=== PATIENT | male | born 1960 | race Caucasian/White ===

== ENCOUNTER 2021-07-12 18:27 | Inpatient (IN) ==
[2021-07-12] MEDS ORDERED: ONDANSETRON INJ 2 MG/ML 2 ML VIAL ONE (19:29)
[2021-07-12] MEDS ORDERED: SODIUM CHLORIDE 0.9% 1000ML 1,000 ML IV ONE (21:56)
[2021-07-12] MEDS ORDERED: ACETAMINOPHEN 325 MG TAB PO STA (21:56)
--- NOTE | 2021-07-12 22:01 | Emergency Department Note ---
History of Present Illness General Chief complaint: Weakness Stated complaint: NAUSEA,COUGH,WEAKNESS,TIRED Time Seen by Provider: 07/12/21 21:48 Source: patient History of Present Illness Provider complaint: Generalized weakness Onset (ago): week(s) Location: head Pain Consistency: + constant Maximum Pain Intensity: 7 Quality: + other (Feels weak and tired) Relieved By: + none Associated symptoms: + cough, + malaise, + nausea/vomiting (Nausea no vomiting), + weakness and + other (Diarrhea with loss of taste and smell); no chest pain, no fever/chills or no shortness of breath This is a 60-year-old male with a history of diabetes presenting with generalized weakness. He contracted COVID-19 approximately 10 days ago. He has been ill with a cough, loss of taste and smell, diarrhea and generalized malaise. He denies any chest pain or shortness of breath except when he had a coughing fit earlier tonight. He has not been throwing up but he is very nauseous and has not been eating very much. He is mostly concerned because his mouth and throat are very dry and he is not eating very much. He has not really had any fevers at home. He denies any abdominal pain or urinary symptoms. He has had no leg swelling or pain. He is not vaccinated for COVID-19. Home Medications Medication Instructions Recorded Confirmed Type Unknown Eye Drop 1 drp OPHTHALMIC (EYE) BID 07/12/21 07/12/21 History aspirin 81 mg tablet,delayed 81 mg PO DAILY 07/12/21 07/12/21 History release brimonidine 0.1 % eye drops 1 drp OPHTHALMIC (EYE) BID 07/12/21 07/12/21 History (Alphagan P) glyburide 2.5 mg tablet 2.5 mg PO BID 07/12/21 07/12/21 History guaifenesin 100 mg/5 mL oral liquid 200 mg PO DIRECTED PRN 07/12/21 07/12/21 History loteprednol etabonate 0.5 % eye 1 drp OPHTHALMIC (EYE) QAM 07/12/21 07/12/21 History drops,suspension (Lotemax) sitagliptin 100 mg tablet (Januvia) 100 mg PO HS 07/12/21 07/12/21 History timolol maleate 0.5 % eye drops 1 drp OPHTHALMIC (EYE) DAILY 07/12/21 07/12/21 H istory Allergies Allergy/AdvReac Type Severity Reaction Status Date / Time No Known Allergies Allergy Verified 07/12/21 22:45 Past Med/Surg History Medical History Diabetes High cholesterol Social History Smoking Status: Never smoker Preferred Language: Belarusian Feels Safe at Home: Yes Review of Systems See HPI for pertinent positives & negatives. and A total of 10 systems reviewed and were otherwise negative Physical Exam Vital Signs Vital Signs - 24 hr 07/12/21 18:32 07/12/21 22:25 Temperature 37.9 C H Temperature Source Temporal Artery Scan Pulse Rate 105 H Pulse Rate [Apical] 88 Pulse Rhythm Regular Pulse Rhythm [Apical] Regular Pulse Strength Normal Respiratory Rate 20 16 Respiratory Effort / Characteristics Non-Labored Spontaneous Non-Labored Respiratory Depth Normal Normal Respiratory Pattern Regular Blood Pressure 136/83 Blood Pressure [Right Arm] 152/91 H Blood Pressure Mean 100 Blood Pressure Mean [Right Arm] 111 Blood Pressure Position Sitting Pulse Oximetry 91 96 Oxygen Delivery Method Room Air Nasal Cannula Oxygen Flow Rate 2 Sepsis Recent Fever Within 48 Hours No Sepsis New/Unexplained Change in Mental Status No Sepsis Action Taken by Nursing No Action Required Oxygen Flow Rate - Titration 2 Pulse Oximetry Post Tiitration 93 Constitutional: Vital signs reviewed. Eyes: Pupils are equal round reactive to light. Conjunctiva are noninjected. ENT: Pharynx is clear without erythema or exudate. Mucous membranes are dry. Neck supple without meningeal signs. Respiratory: Clear to auscultation bilaterally. Breath sounds are equal bilaterally. Cardiovascular: Regular rate and rhythm. No rubs or gallops. GI: Soft, nondistended and nontender. Bowel sounds are present. Musculoskeletal: No peripheral edema. No lower extremity tenderness. Integumentary: No cyanosis. or jaundice. Neurological: The patient is awake and alert. No focal deficits. Psychiatric: Normal affect. Not anxious appearing. Course Administered Medications Remdesivir 200 mg/ Sodium (Chloride) 250 mls @ 125 mls/hr IV ONE STA; Protocol Stop: 07/13/21 02:17 Last Admin: 07/13/21 00:54 Dose: 125 mls/hr Documented by: [id number] Sodium Chloride (Nss 1000ml) 1,000 mls @ 75 mls/hr IV .[id number] ONE Stop: 07/13/21 13:37 Last Admin: 07/13/21 00:54 Dose: 75 mls/hr Documented by: [id number] Discontinued Medications Acetaminophen (Acetaminophen 325 Mg Tab) 650 mg PO NOW STA Stop: 07/12/21 21:57 Last Admin: 07/12/21 22:28 Dose: 650 mg Documented by: [id number] Dexamethasone Sodium Phosphate (DexamethasonePf 10 Mg/Ml Vial) 6 mg IV NOW ONE Stop: 07/12/21 22:51 Last Admin: 07/12/21 23:14 Dose: 6 mg Documented by: [id number] Sodium Chloride (Nss 1000ml) 1,000 mls @ 999 mls/hr IV .[id number] ONE Stop: 07/12/21 22:56 Last Infusion: 07/12/21 23:42 Dose: 0 mls/hr Documented by: [id number] Admin: 07/12/21 22:28 Dose: 999 mls/hr Documented by: [id number] Insulin Glargine (Insulin Glargine Solostar 100 Units/Ml 3 Ml Pen) 20 units SC NOW STA Stop: 07/12/21 23:31 Last Admin: 07/13/21 00:52 Dose: 20 units Documented by: [id number] Cosigned by: [id number] Insulin Human Regular (Novolin-R Insulin Per Unit Charge) 4 units IV NOW STA Stop: 07/12/21 22:51 Last Admin: 07/12/21 23:21 Dose: 4 units Documented by: [id number] Cosigned by: [id number] Levalbuterol HCl (Levalbuterol Tartrate 15 Gm Hfa.Aer.Ad) 2 puffs INH NOW STA Stop: 07/13/21 00:12 Last Admin: 07/13/21 00:55 Dose: 2 puffs Documented by: [id number] Ondansetron HCl (Ondansetron Inj 2 Mg/Ml 2 Ml Vial) Confirm Administered Dose 4 mg .ROUTE .STK-MED ONE Stop: 07/12/21 19:30 Last Admin: 07/12/21 22:50 Dose: Not Given Documented by: [id number] Ondansetron HCl (Ondansetron Inj 2 Mg/Ml 2 Ml Vial) 4 mg IV NOW STA Stop: 07/12/21 22:09 Last Admin: 07/12/21 22:28 Dose: 4 mg Documented by: [id number] Medical Decision Making Differential Diagnosis COVID-19, pneumonia, dehydration, metabolic derangement, electrolyte abnormality Medical Records Attestation: I reviewed the patient's medical records. I did perform a limited focused review of portions of the patient's old chart on the electronic medical record. The patient has had no recent pertinent visits to this hospital. Home Medications Current Medication List: was personally reviewed by [place] Laboratory Data Attestation: I reviewed the patient's lab results. Result diagrams: 07/12/21 22:30 07/12/21 22:30 Lab Results 07/12/21 07/12/21 07/12/21 Range/Units 18:34 22:30 22:30 WBC 7.58 (4.8-10.8) K/uL RBC 4.95 (4.7-6.1) M/uL Hgb 14.9 (14.0-18.0) g/dL Hct 43.6 (42-52) % MCV 88.1 (80-100) fL MCH 30.1 (25-34) pg MCHC 34.2 (32-36) g/dL RDW Std Deviation 42.7 (36.4-46.3) fL RDW Coeff of Caroline 13.2 (11.5-14.5) % Plt Count 180 (130-400) K/uL MPV 11.1 H (7.4-10.4) fL Immature Gran % (Auto) 0.7 % Neut % (Auto) 78.7 % Lymph % (Auto) 14.1 % Charlton % (Auto) 6.2 % Eos % (Auto) 0.0 % Baso % (Auto) 0.3 % Neut # (Auto) 5.97 (1.4-6.5) K/uL Lymph # (Auto) 1.07 L (1.2-3.4) K/uL [place] # (Auto) 0.47 (0.11-0.59) K/uL Eos # (Auto) 0.00 (0-0.5) K/uL Baso # (Auto) 0.02 (0-0.2) K/uL Immature Gran # (Auto) 0.05 H (0.00-0.02) K/uL Sodium 137 (136-145) mmol/L Potassium 4.1 (3.5-5.1) mmol/L Chloride 103 (98-107) mmol/L Carbon Dioxide 21 (21-32) mmol/L Anion Gap 13.0 H (3-11) BUN 30 H (7-18) mg/dl Creatinine 1.13 (0.6-1.4) mg/dl Est Cr Clr Drug Dosing 75.5 ml/min Est GFR ( Amer) 81.4 ml/min Est GFR (Non-Af Amer) 70.3 ml/min BUN/Creatinine Ratio 26.5 H (10-20) Glucose 310 H* (70-99) mg/dl POC Glucose 309 H* (70-99) mg/dl Calcium 9.0 (8.5-10.1) mg/dl Magnesium 2.3 (1.8-2.4) mg/dl Total Bilirubin 0.6 (0.2-1) mg/dl AST 19 (15-37) U/L ALT 22 (12-78) U/L Alkaline Phosphatase 72 (45-117) U/L Troponin I < 0.015 (0-0.045) ng/ml Total Protein 7.6 (6.4-8.2) gm/dl Albumin 3.0 L (3.4-5.0) gm/dl Globulin 4.6 H (2.5-4.0) gm/dl Albumin/Globulin Ratio 0.6 L (0.9-2) Beta-Hydroxybutyric Acd 36.14 H (0.2-2.81) mg/dl TSH 0.492 (0.300-4.500) uIu/ml 07/12/21 Range/Units 23:12 WBC (4.8-10.8) K/uL RBC (4.7-6.1) M/uL Hgb (14.0-18.0) g/dL Hct (42-52) % MCV (80-100) fL MCH (25-34) pg MCHC (32-36) g/dL RDW Std Deviation (36.4-46.3) fL RDW Coeff of Caroline (11.5-14.5) % Plt Count (130-400) K/uL MPV (7.4-10.4) fL Immature Gran % (Auto) % Neut % (Auto) % Lymph % (Auto) % [place] % (Auto) % Eos % (Auto) % Baso % (Auto) % Neut # (Auto) (1.4-6.5) K/uL Lymph # (Auto) (1.2-3.4) K/uL [place] # (Auto) (0.11-0.59) K/uL Eos # (Auto) (0-0.5) K/uL Baso # (Auto) (0-0.2) K/uL Immature Gran # (Auto) (0.00-0.02) K/uL Sodium (136-145) mmol/L Potassium (3.5-5.1) mmol/L Chloride (98-107) mmol/L Carbon Dioxide (21-32) mmol/L Anion Gap (3-11) BUN (7-18) mg/dl Creatinine (0.6-1.4) mg/dl Est Cr Clr Drug Dosing ml/min Est GFR ( Amer) ml/min Est GFR (Non-Af Amer) ml/min BUN/Creatinine Ratio (10-20) Glucose (70-99) mg/dl POC Glucose 290 H (70-99) mg/dl Calcium (8.5-10.1) mg/dl Magnesium (1.8-2.4) mg/dl Total Bilirubin (0.2-1) mg/dl AST (15-37) U/L ALT (12-78) U/L Alkaline Phosphatase (45-117) U/L Troponin I (0-0.045) ng/ml Total Protein (6.4-8.2) gm/dl Albumin (3.4-5.0) gm/dl Globulin (2.5-4.0) gm/dl Albumin/Globulin Ratio (0.9-2) Beta-Hydroxybutyric Acd (0.2-2.81) mg/dl TSH (0.300-4.500) uIu/ml Imaging Data Radiologist's Impression: Chest X-Ray 07/12/21 21:56 XR chest 1V portable HISTORY: 60 years-old Male covid acute shortness of breath. COMPARISON: Chest radiograph 12/28/2012 TECHNIQUE: Portable AP view of the chest FINDINGS: The cardiac silhouette is enlarged. No pneumothorax or large pleural effusion. Interstitial coarsening with right greater than left ill-defined patchy bilateral airspace opacities. Degenerative changes of the shoulders and spine. No acute fracture. IMPRESSION: Right greater than left bilateral pulmonary opacities are suggestive of viral pneumonia. ACT 112: Negative or not required by law. The above report was generated using voice recognition software. It may contain grammatical, syntax or spelling errors. Electronically signed by: Carroll Owens M.D. 07/12/2021 10:18 PM ECG Data Attestation: I personally reviewed and interpreted this ECG as follows: Indication: + SOB/dyspnea Rate (beats per minute): 94 Rhythm: + normal sinus ECG [place]: + Normal ECG ST segments: no ST elevation ECG Findings: no PVCs MDM Narrative I did evaluate the patient as noted above. The patient is having Covid symptoms from 7 to 10 days. He is having trouble remembering. He is presenting today because he feels weak and nauseous and has not been able to eat very much. He denies feeling very short of breath. IV access was established. I did place an order for continuous cardiac monitoring. The monitor showed normal sinus rhythm at a rate of 88 bpm. I did order and personally review the patient's 12-lead EKG as described above. He has no acute ischemic changes. I did order and pers onally reviewed the images of the patient's chest x-ray as described above. He has changes consistent with a viral pneumonia. I did order and review the patient's blood work as noted in the electronic medical record. CBC does not demonstrate leukocytosis or anemia. His electrolytes are unremarkable. His glucose is elevated at 310. He is diabetic but not on insulin. His troponin and LFTs are within normal limits. I did treat the patient with normal saline IV. He was also given 4 units of insulin IV. His O2 saturation dropped to the high 80s and so he was placed on 2 L of oxygen via nasal cannula. On reassessment he states he feels better on the oxygen. He will be hospitalized for further care and evaluation. He was given Decadron 6 mg IV and warned that his blood sugar may increase because of this. I did discuss the case with the hospitalist and pillowcase turner. Repeat blood sugar was 290. Impression & Plan Multifocal pneumonia, Hypoxemia, Acute hyperglycemia, COVID-19 Discharge Plan Visit Data Chief Complaint: Weakness Stated Complaint: NAUSEA,COUGH,WEAKNESS,TIRED ED Provider: Vern Ojeda Discharge Problem: Multifocal pneumonia, Hypoxemia, Acute hyperglycemia, COVID-19 Patient Disposition: Being Evaluated by Hospitalist Discharge Instructions Interventions: ED Discharge Assessment Last Done: 07/13/21 01:27
[2021-07-12] MEDS ORDERED: ONDANSETRON INJ 2 MG/ML 2 ML VIAL IV STA (22:08)
--- NOTE | 2021-07-12 22:19 | XRay Report ---
XR chest 1V portable HISTORY: 60 years-old Male covid acute shortness of breath. COMPARISON: Chest radiograph 12/28/2012 TECHNIQUE: Portable AP view of the chest FINDINGS: The cardiac silhouette is enlarged. No pneumothorax or large pleural effusion. Interstitial coarsenin g with right greater than left ill-defined patchy bilateral airspace opacities. Degenerative changes of the shoulders and spine. No acute fracture. IMPRESSION: Right greater than left bilateral pulmonary opacities are suggestive of viral pneumonia. ACT 112: Negative or not required by law. The above report was generated using voice recognition software. It may contain grammatical, syntax o r spelling errors. Electronically signed by: Carroll Owens M.D. 07/12/2021 10:18 PM
[2021-07-12 22:42] LABS: Hematocrit (blood only) 43.6 % (42-52); Hemoglobin 14.9 g/dL (14.0-18.0); Mean Corpuscular Hemoglobin 30.1 pg (25-34); Mean Corpuscular Hgb Conc 34.2 g/dL (32-36); Mean Corpuscular Volume 88.1 fL (80-100); Mean Platelet Volume 11.1 fL (7.4-10.4); Platelet Count 180 K/uL (130-400); RDW Coefficient of Variation 13.2 % (11.5-14.5); RDW Standard Deviation 42.7 fL (36.4-46.3); Red Blood Count 4.95 M/uL (4.7-6.1); White Blood Count 7.58 K/uL (4.8-10.8)
[2021-07-12] MEDS ORDERED: dexAMETHasone**PF** 10 MG/ML VIAL IV ONE (22:50)
[2021-07-12] MEDS ORDERED: NovoLIN-R INSULIN PER UNIT CHARGE IV STA (22:50)
[2021-07-12 23:06] LABS: Alanine Aminotransferase 22 U/L (12-78); Aspartate Aminotransferase 19 U/L (15-37); BUN Creatinine Ratio 26.5 (10-20); Blood Urea Nitrogen 30 mg/dl (7-18); Carbon Dioxide 21 mmol/L (21-32); Chloride 103 mmol/L (98-107); Creatinine Clr Calc Pharmacy 75.5 ml/min; Est GFR (African American) 81.4 ml/min; Est GFR (Non-African American) 70.3 ml/min; Glucose 310 mg/dl (70-99); Potassium 4.1 mmol/L (3.5-5.1); Sodium 137 mmol/L (136-145)
[2021-07-12 23:09] LABS: Albumin Globulin Ratio 0.6 (0.9-2); Alkaline Phosphatase 72 U/L (45-117); Bilirubin,Total 0.6 mg/dl (0.2-1); Globulin 4.6 gm/dl (2.5-4.0); Total Protein 7.6 gm/dl (6.4-8.2); Troponin I < 0.015 ng/ml (0-0.045)
[2021-07-12 23:18] LABS: Beta-Hydroxybutyrate 36.14 mg/dl (0.2-2.81); Thyroid Stimulating Hormone 0.492 uIu/ml (0.300-4.500)
[2021-07-12] MEDS ORDERED: INSULIN GLARGINE SOLOSTAR 100 UNITS/ML 3 ML PEN SC STA (23:30)
[2021-07-12 23:33] LABS: Magnesium 2.3 mg/dl (1.8-2.4)
[2021-07-12 23:55] LABS: Basophils # (auto) 0.02 K/uL (0-0.2); Basophils % (auto) 0.3 %; Immature Granulocytes # (auto) 0.05 K/uL (0.00-0.02); Immature Granulocytes % (auto) 0.7 %; Lymphocytes # (auto) 1.07 K/uL (1.2-3.4); Lymphocytes % (auto) 14.1 %; Monocytes # (auto) 0.47 K/uL (0.11-0.59); Monocytes % (auto) 6.2 %; Neutrophils # (auto) 5.97 K/uL (1.4-6.5); Neutrophils % (auto) 78.7 %
--- NOTE | 2021-07-13 00:09 | History & Physical Report ---
Date of Service July 13, 2021 Assessment & Plan (1) Acute hypoxemic respiratory failure: Plan: Secondary to severe COVID-19 pneumonia DM2 on oral medications, patient markedly hyperglycemic Suboptimal control as of recent hemoglobin A1c of 9.24 September 2020 glaucoma, stable on medications Medical telemetry Supplemental O2 Decadron and Remdesivir for severe COVID-19 pneumonia. (Patient was counseled regarding potential adverse effects from Remdesivir therapy and provided with patient education sheet.) Pulmonary consult if without improvement. Basal insulin, ISS BG goal 1 10-1 40, carb count coverage, update hemoglobin A1c DVT prophylaxis per Lovenox subcu Full code Patient requests for daughter to be updated of his progress. Ms. Zayra Leary, contact #[phone]. Text document was generated using [employer] voice recognition software. It may contain grammatical or spelling errors. Kindly contact undersigned for clarification of any documentation item in question. History of Present Illness Chief Complaint: Worsening shortness of breath, Covid Primary Care Provider: Luigi Jean MD History obtained from patient and records. Medical history significant for hyperlipidemia, DM2 on oral medications, chronic back pain, glaucoma. Last confinement 2012 under Cardiology service for noncardiac chest pain. 10 days ago, patient noted generalized weakness, flulike symptoms, dry cough with malaise. No chest pain. Poor appetite. Patient sick with COVID-19. Patient has not received COVID-19 vaccination. Initial COVID-19 test from 10 days ago was negative. Patient noted worsening symptoms. Outpatient COVID-19 test from 2 days ago was positive. Patient consulted ER with tonight because of worsening illness. Dry cough, shortness of breath without chest pain complaints. O2 sats 89 on room air at some point during ER stay. Patient given IV Decadron at the ER. BSG noted to be 300s. IV insulin administered at the ER. 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 Allergies Allergy/AdvReac Type Severity Reaction Status Date / Time No Known Allergies Allergy Verified 07/12/21 22:45 Home Medications Medication Instructions Recorded Confirmed Type aspirin 81 mg tablet,delayed 81 mg PO DAILY 07/12/21 07/12/21 History release brimonidine 0.1 % eye drops 1 drp OPHTHALMIC (EYE) BID 07/12/21 07/12/21 History (Alphagan P) glyburide 2.5 mg tablet 2.5 mg PO BID 07/12/21 07/12/21 History guaifenesin 100 mg/5 mL oral liquid 200 mg PO DIRECTED PRN 07/12/21 07/12/21 History loteprednol etabonate 0.5 % eye 1 drp OPHTHALMIC (EYE) QAM 07/12/21 07/12/21 History drops,suspension (Lotemax) sitagliptin 100 mg tablet (Januvia) 100 mg PO HS 07/12/21 07/12/21 History timolol maleate 0.5 % eye drops 1 drp OPHTHALMIC (EYE) DAILY 07/12/21 07/12/21 History dorzolamide 2 % eye drops 1 drp BID 07/13/21 07/13/21 History Past Med/Surg History Medical History Diabetes High cholesterol Social History Smoking Status: Never smoker Preferred Language: Azeri Feels Safe at Home: Yes Review of Systems Review of Systems: As per HPI, all 10 systems reviewed, all other ROS negative Physical Exam Physical Exam: GENERAL: Comfortable, slightly anxious, no respiratory distress SKIN: Normal color, warm HEENT: Bespectacled, [place] palpebral conjunctivae, no ptosis, dry buccal mucosa, nasal cannula in place NECK : Supple, no tenderness CHEST : Decreased breath sounds, occasional expiratory wheezes, no tenderness HEART : RRR, no obvious murmurs ABDOMEN: no distention, nontender EXTREMITIES : No LE swelling/tenderness, no other conspicuous deformities noted NEUROLOGIC : Coherent, no facial asymmetry, no other gross focality Results & Data Results & Data ([facility]) Vital Signs (Past 12 Hours) Vital Signs Temp Pulse Pulse Resp BP BP Pulse Ox 07/12/21 22:25 88 16 152/91 H 96 07/12/21 18:32 37.9 C H 105 H 20 136/83 91 Laboratory Results Laboratory Results WBC 7.58 K/uL (4.8-10.8) 07/12/21 22:30 RBC 4.95 M/uL (4.7-6.1) 07/12/21 22: Hgb 14.9 g/dL (14.0-18.0) 07/12/21 22: Hct 43.6 % (42-52) 07/12/21 22: MCV 88.1 fL (80-100) 07/12/21 22: MCH 30.1 pg (25-34) 07/12/21: MCHC 34.2 g/dL (32-36) 07/12/21 22: RDW Std Deviation 42.7 fL (36.4-46.3) 07/12/21: RDW Coeff of Caroline 13.2 % (11.5-14.5) 07/12/21: Plt Count 180 K/uL (130-400) 07/12/21 22: MPV 11.1 fL (7.4-10.4) H 07/12/21: Immature Gran % (Auto) 0.7 % 07/12/21: Neut % (Auto) 78.7 % 07/12/21: Lymph % (Auto) 14.1 % 07/12/21 22: [place] % (Auto) 6.2 % 07/12/21: Eos % (Auto) 0.0 % 07/12/21: Baso % (Auto) 0.3 % 07/12/21: Neut # (Auto) 5.97 K/uL (1.4-6.5) 07/12/21: Lymph # (Auto) 1.07 K/uL (1.2-3.4) L 07/12/21 22: [place] # (Auto) 0.47 K/uL (0.11-0.59) 07/12/21 22: Eos # (Auto) 0.00 K/uL (0-0.5) 07/12/21: Baso # (Auto) 0.02 K/uL (0-0.2) 07/12/21: Immature Gran # (Auto) 0.05 K/uL (0.00-0.02) H 07/12/21 22: Sodium 137 mmol/L (136-145) 11/19/21 22:30 Potassium 4.1 mmol/L (3.5-5.1) 07/12/21 22:30 Chloride 103 mmol/L (98-107) 07/12/21 22:30 Carbon Dioxide 21 mmol/L (21-32) 07/12/21 22:30 Anion Gap 13.0 (3-11) H 07/12/21 22:30 BUN 30 mg/dl (7-18) H 07/12/21 22:30 Creatinine 1.13 mg/dl (0.6-1.4) 07/12/21 22:30 Est Cr Clr Drug Dosing 75.5 ml/min 07/12/21 22:30 Est GFR ( Amer) 81.4 ml/min 07/12/21 22:30 Est GFR (Non-Af Amer) 70.3 ml/min 07/12/21 22:30 BUN/Creatinine Ratio 26.5 (10-20) H 07/12/21 22:30 Glucose 310 mg/dl (70-99) H* 07/12/21 22:30 POC Glucose 290 mg/dl (70-99) H 07/12/21 23:12 Calcium 9.0 mg/dl (8.5-10.1) 07/12/21 22:30 Magnesium 2.3 mg/dl (1.8-2.4) 07/12/21 22:30 Total Bilirubin 0.6 mg/dl (0.2-1) 07/12/21 22:30 AST 19 U/L (15-37) 07/12/21 22:30 ALT 22 U/L (12-78) 07/12/21 22:30 Alkaline Phosphatase 72 U/L (45-117) 07/12/21 22:30 Troponin I < 0.015 ng/ml (0-0.045) 07/12/21 22:30 Total Protein 7.6 gm/dl (6.4-8.2) 07/12/21 22:30 Albumin 3.0 gm/dl (3.4-5.0) L 07/12/21 22:30 Globulin 4.6 gm/dl (2.5-4.0) H 07/12/21 22:30 Albumin/Globulin Ratio 0.6 (0.9-2) L 07/12/21 22:30 Beta-Hydroxybutyric Acd 36.14 mg/dl (0.2-2.81) H 07/12/21 22:30 TSH 0.492 uIu/ml (0.300-4.500) 07/12/21 22:30 Impressions Chest X-Ray 07/12/21 21:56 XR chest 1V portable HISTORY: 60 years-old Male covid acute shortness of breath. COMPARISON: Chest radiograph 12/28/2012 TECHNIQUE: Portable AP view of the chest FINDINGS: The cardiac silhouette is enlarged. No pneumothorax or large pleural effusion. Interstitial coarsening with right greater than left ill-defined patchy bilateral airspace opacities. Degenerative changes of the shoulders and spine. No acute fracture. IMPRESSION: Right greater than left bilateral pulmonary opacities are suggestive of viral pneumonia. ACT 112: Negative or not required by law. The above report was generated using voice recognition software. It may contain grammatical, syntax or spelling errors. Electronically signed by: Carroll Owens M.D. 07/12/2021 10:18 PM Diagnostic Findings EKG as per my interpretation rate 95, NSR, normal axis, no ischemia
[2021-07-13] MEDS ORDERED: LEVALBUTEROL TARTRATE 15 GM HFA.AER.AD INH STA (00:11)
[2021-07-13] MEDS ORDERED: REMDESIVIR 200 MG in SODIUM CHLORIDE 0.9% 210 ML IV STA (00:18)
[2021-07-13] MEDS ORDERED: SODIUM CHLORIDE 0.9% 1000ML 1,000 ML IV ONE (00:18)
[2021-07-13] MEDS ORDERED: GLUCOSE 40% GEL 15 GM TUBE PO PRN (01:28)
[2021-07-13] MEDS ORDERED: GLUCAGON FOR INJ 1 MG VIAL SQ PRN (01:28)
[2021-07-13] MEDS ORDERED: DEXTROSE 50% 50 ML SYRINGE IV PRN (01:28)
[2021-07-13] MEDS ORDERED: XOPENEX/ATROVENT 1.25mg/0.5MG NEB COMBO NEB PRN (01:28)
[2021-07-13] MEDS ORDERED: IPRATROPIUM BROMIDE NEB SOLN 0.02% 2.5 ML VIAL INH PRN ×2 (01:28→01:55)
[2021-07-13] MEDS ORDERED: LEVALBUTEROL 1.25MG/0.5ML NEB INH PRN (01:28)
[2021-07-13] MEDS ORDERED: PROMETHAZINE HCL 12.5 MG in SODIUM CHLORIDE 0.9% 50 ML IV PRN (01:28)
[2021-07-13] MEDS ORDERED: GLUCOSE 10 TABS/TUBE PO PRN (01:28)
[2021-07-13] MEDS ORDERED: CARBOHYDRATES FOR HYPOGLYCEMIA PO PRN (01:28)
[2021-07-13] MEDS: INSULIN ASPART 100 UNITS/ML 3 ML PEN SC SCH ×5 (02:53→20:30)
[2021-07-13] MEDS: ALPHAGAN~ORDER AWAITING ACTION SCH ×4 (02:55→23:31)
[2021-07-13] MEDS: LOTEMAX~ORDER AWAITING ACTION SCH ×4 (02:55→23:29)
[2021-07-13] MEDS: guaiFENesin 600 MG TABCR PO SCH ×3 (02:55→20:48)
[2021-07-13 05:47] LABS: Hematocrit (blood only) 41.5 % (42-52); Hemoglobin 14.2 g/dL (14.0-18.0); Mean Corpuscular Hemoglobin 30.1 pg (25-34); Mean Corpuscular Hgb Conc 34.2 g/dL (32-36); Mean Corpuscular Volume 87.9 fL (80-100); Mean Platelet Volume 10.8 fL (7.4-10.4); Platelet Count 181 K/uL (130-400); RDW Coefficient of Variation 13.1 % (11.5-14.5); Red Blood Count 4.72 M/uL (4.7-6.1); White Blood Count 4.99 K/uL (4.8-10.8)
[2021-07-13 06:17] LABS: Albumin Level 2.6 gm/dl (3.4-5.0); Calcium 8.7 mg/dl (8.5-10.1); Creatinine Clr Calc Pharmacy 86.2 ml/min; Est GFR (African American) 95.5 ml/min; Est GFR (Non-African American) 82.4 ml/min; Potassium 4.3 mmol/L (3.5-5.1)
[2021-07-13 06:20] LABS: Albumin Globulin Ratio 0.6 (0.9-2); Bilirubin,Total 0.5 mg/dl (0.2-1); C Reactive Protein 6.25 mg/dl (0-0.29); Globulin 4.3 gm/dl (2.5-4.0); Total Protein 6.9 gm/dl (6.4-8.2)
[2021-07-13 06:21] LABS: Echinocytes 1+; Immature Granulocytes # (auto) 0.02 K/uL (0.00-0.02); Immature Granulocytes % (auto) 0.4 %; Lymphocytes # (auto) 0.66 K/uL (1.2-3.4); Lymphocytes % (auto) 13.2 %; Monocytes # (auto) 0.14 K/uL (0.11-0.59); Monocytes % (auto) 2.8 %; Neutrophils # (auto) 4.17 K/uL (1.4-6.5); Neutrophils % (auto) 83.6 %
[2021-07-13] MEDS ORDERED: INSULIN GLARGINE SOLOSTAR 100 UNITS/ML 3 ML PEN SC SCH ×2 (07:15→09:00)
[2021-07-13 07:28] LABS: Estimated Average Glucose 252 mg/dl; Hemoglobin A1C 10.4 % (4.5-5.6)
[2021-07-13] MEDS ORDERED: [UNRECOGNIZED DRUG - OTHER] OP SCH (09:00)
[2021-07-13] MEDS: ASPIRIN 81 MG ECTAB PO SCH (09:55)
[2021-07-13] MEDS: dexAMETHasone 6 MG in SYRINGE 0 ML IV SCH (09:56)
[2021-07-13] MEDS: ENOXAPARIN INJ 30 MG/0.3 ML SYR SQ SCH (09:57)
[2021-07-13] MEDS: DORZOLAMIDE HCL 2% OPH SOLN 10 ML BTL OPB SCH ×2 (10:03→20:48)
[2021-07-13] MEDS: TIMOLOL MALEATE 0.25% OP SOLN 5 ML BTL OP SCH (10:03)
--- NOTE | 2021-07-13 19:52 | Hospitalist Progress Note ---
Date of Service July 13, 2021 Assessment & Plan (1) Acute hypoxemic respiratory failure: Plan: Multifocal COVID-19 pneumonia CXR:Right greater than left bilateral pulmonary opacities are suggestive of viral pneumonia. Continue Remdesivir, dexamethasone Continue supplemental oxygen as needed Lasix as needed On Lovenox SQ for DVT prophylaxis DM II HbA1c 10.4 Continue BGs Continue insulin therapy Glaucoma Continue home medication DVT Px: Lovenox SQ Code Status Full code Admission and Anticipated Discharge Date Admission Date: July 13, 2021 Subjective Patient is seen and examined at bedside States feeling better since the time of admission Denies any significant dyspnea Reports intermittent cough Feels chest is congested Offers no other complaints Saturating low 90s on his 2 to 3 L of supplemental oxygen Review of Systems Review of Systems: All systems reviewed & are unremarkable except as noted in Subjective Physical Exam Physical Exam: Physical Exam: Vitals signs as noted above General Appearance:Moderately built and nourished, no apparent distress Head: normocephalic, Atraumatic Eyes: normal inspection, EOMI Neck: supple, Trachea midline Respiratory/Chest: Decreased breath sounds, CTA, No accessory muscle use Cardiovascular: S1, S2, No murmur Abdomen/GI:Soft, Non tender, Bowel sounds present Extremities/Musculoskeletal:normal inspection, no edema Neurologic/Psych:AAOX3, grossly no focal neurological deficits Skin: normal color, warm Results & Data Results & Data ([facility]) Vital Signs (Past 12 Hours) Vital Signs Temp Pulse Pulse Pulse Resp BP BP 07/13/21 19:26 37.0 C 87 18 154/77 H 07/13/21 17:45 81 07/13/21 16:43 36.4 C L 81 16 126/78 07/13/21 16:04 83 16 136/78 07/13/21 15:20 74 18 136/78 07/13/21 13:50 78 18 145/76 H 07/13/21 08:35 36.8 C 79 14 131/78 Pulse Ox 07/13/21 19:26 92 07/13/21 17:45 07/13/21 16:43 93 07/13/21 16:04 98 07/13/21 15:20 91 07/13/21 13:50 94 07/13/21 08:35 92 Laboratory Results Short CBC 07/12/21 07/13/21 Range/Units 22:30 05:38 WBC 7.58 4.99 (4.8-10.8) K/uL Hgb 14.9 14.2 (14.0-18.0) g/dL Hct 43.6 41.5 L (42-52) % Plt Count 180 181 (130-400) K/uL BMP 07/12/21 07/13/21 22:30 05:38 Sodium 137 138 Potassium 4.1 4.3 Chloride 103 108 H Carbon Dioxide 21 24 BUN 30 H 29 H Creatinine 1.13 0.99 Glucose 310 H* 276 H Calcium 9.0 8.7 Cardiac Enzymes 07/12/21 Range/Units 22:30 Troponin I < 0.015 (0-0.045) ng/ml Liver Function 07/12/21 07/13/21 Range/Units 22:30 05:38 Total Bilirubin 0.6 0.5 (0.2-1) mg/dl AST 19 20 (15-37) U/L ALT 22 22 (12-78) U/L Alkaline Phosphatase 72 66 (45-117) U/L Albumin 3.0 L 2.6 L (3.4-5.0) gm/dl Urine 07/13/21 Range/Units 15:11 Urine Color Cancelled Urine Appearance Cancelled Urine pH Cancelled Ur Specific Phil Campbell Cancelled Urine Protein Cancelled Urine Glucose (UA) Cancelled
[2021-07-13] MEDS: INSULIN GLARGINE SOLOSTAR 100 UNITS/ML 3 ML PEN SC SCH (20:30)
[2021-07-13] MEDS: REMDESIVIR 100 MG in SODIUM CHLORIDE 0.9% 230 ML IV SCH (20:46)
[2021-07-13] MEDS: SODIUM CHLORIDE 0.9% 10ML FLUSH IV SCH (20:46)
[2021-07-14] MEDS: INSULIN ASPART 100 UNITS/ML 3 ML PEN SC SCH ×6 (01:06→21:00)
[2021-07-14 07:25] LABS: Hematocrit (blood only) 41.4 % (42-52); Hemoglobin 14.5 g/dL (14.0-18.0); Mean Corpuscular Hemoglobin 30.1 pg (25-34); Mean Corpuscular Volume 86.1 fL (80-100); Platelet Count 215 K/uL (130-400); RDW Coefficient of Variation 12.9 % (11.5-14.5); RDW Standard Deviation 40.8 fL (36.4-46.3); Red Blood Count 4.81 M/uL (4.7-6.1)
[2021-07-14 07:55] LABS: BUN Creatinine Ratio 30.9 (10-20); Calcium 8.6 mg/dl (8.5-10.1); Creatinine Clr Calc Pharmacy 90.6 ml/min; Est GFR (Non-African American) 87.2 ml/min; Potassium 3.8 mmol/L (3.5-5.1)
[2021-07-14 07:56] LABS: C Reactive Protein 2.47 mg/dl (0-0.29)
[2021-07-14] MEDS: dexAMETHasone 6 MG in SYRINGE 0 ML IV SCH (08:29)
[2021-07-14] MEDS: ASPIRIN 81 MG ECTAB PO SCH (08:29)
[2021-07-14] MEDS: guaiFENesin 600 MG TABCR PO SCH ×2 (08:30→20:15)
[2021-07-14] MEDS: ALPHAGAN~ORDER AWAITING ACTION SCH ×3 (08:31→23:55)
[2021-07-14] MEDS: ENOXAPARIN INJ 30 MG/0.3 ML SYR SQ SCH (08:31)
[2021-07-14] MEDS: DORZOLAMIDE HCL 2% OPH SOLN 10 ML BTL OPB SCH ×2 (08:31→20:16)
[2021-07-14] MEDS: LOTEMAX~ORDER AWAITING ACTION SCH ×3 (08:31→23:55)
[2021-07-14] MEDS ORDERED: PHARMACY GLYCEMIC MGMT CONSULT PRN (08:38)
[2021-07-14] MEDS: INSULIN GLARGINE SOLOSTAR 100 UNITS/ML 3 ML PEN SC SCH ×2 (09:11→21:00)
[2021-07-14] MEDS: TIMOLOL MALEATE 0.25% OP SOLN 5 ML BTL OP SCH (09:42)
--- NOTE | 2021-07-14 09:44 | Electrocardiogram Report ---
Test Reason : Blood Pressure : / mmHG Vent. Rate : 094 BPM Atrial Rate : 094 BPM P-R Int : 166 ms QRS Dur : 084 ms QT Int : 354 ms P-R-T Axes : 060 054 057 degrees QTc Int : 442 ms Poor data quality, interpretation may be adversely affected Normal sinus rhythm Normal ECG When compared with ECG of 29-DEC-2012 07:02, No significant change was found Confirmed by Silver Richardson ([id number]) on 07/14/2021 9:43:51 AM Referred By: REFERRED SELF Confirmed By:Silver Richardson
[2021-07-14] MEDS: INSULIN HUMAN NPH SC SCH (11:54)
--- NOTE | 2021-07-14 14:18 | Pharmacy Report ---
Pharmacy Glycemic Short Note 2 - Date of Service July 14, 2021 - Glycemic Short BSG Results (Last 24 hours): 07/13/21 07/13/21 07/13/21 16:52 20:41 23:36 Glucose POC Glucose 292 H 311 H* 215 H 07/14/21 07/14/21 07/14/21 01:00 06:22 08:34 Glucose 204 H POC Glucose 198 H 177 H 07/14/21 11:11 Glucose POC Glucose 275 H OUTPATIENT ANTIDIABETIC REGIMEN: * Januvia 100mg PO Daily * Glyburide 2.5mg PO BID ASSESSMENT: * 61 year old male admitted for COVID-19 pneumonia, on IV Remdesivir and IV Dexamethasone, type 2 diabetic, uncontrolled, A1c 10.4% * Oral agents are not recommended for inpatient use d/t drug interactions, changing PO intake, and difficulty titrating for acute hyper/hypoglycemia. * Will hold oral agents for admission and continue to utilize SQ basal bolus insulin regimen + NPH insulin to cover steroid effects which is the recommended regimen for inpatient glycemic control. * Continue Lantus, tighten CF/CR, add NPH with IV Dexamethasone PLAN FOR INPATIENT GLYCEMIC CONTROL: * Hold outpatient oral diabetes medications * Basal insulin * Lantus 30 units SQ BID * Steroid induced hyperglycemia * NPH 35 units SQ daily give with IV Dexamethasone (given late today d/t time of receiving pharmacy glycemic consult) * Bolus insulin * NovoLog per scale ACHS or Q6hrs while NPO + one overnight check tonight at 0000 * Goal Range: Low 110 mg/dL - High 140 mg/dL * Correction Factor: 15 mg/dL/unit * Nutritional / Prandial insulin per carb ratio of 1 unit per 5 grams CHO consumed PLAN FOR DISCHARGE: * to be determined, A1c 10.4%, needs insulin on discharge
[2021-07-14] MEDS ORDERED: FUROSEMIDE INJ 20 MG/2 ML VIAL IV ONE (17:30)
--- NOTE | 2021-07-14 17:57 | Hospitalist Progress Note ---
Date of Service July 14, 2021 Assessment & Plan (1) Acute hypoxemic respiratory failure: Plan: Multifocal COVID-19 pneumonia CXR:Right greater than left bilateral pulmonary opacities are suggestive of viral pneumonia. Continue Remdesivir, dexamethasone Continue supplemental oxygen as needed Lasix as needed On Lovenox SQ for DVT prophylaxis We will give a dose of Lasix today On 3 L supplemental oxygen DM II HbA1c 10.4 Continue BGs Continue insulin therapy Glaucoma Continue home medication DVT Px: Lovenox SQ Code Status Full code Admission and Anticipated Discharge Date Admission Date: July 13, 2021 Subjective Patient is seen and examined at bedside States having dizziness intermittently Has cough with expectoration Feels better today Denies any significant dyspnea No other complaints Review of Systems Review of Systems: All systems reviewed & are unremarkable except as noted in Subjective Physical Exam Physical Exam: Physical Exam: Vitals signs as noted above General Appearance:Moderately built and nourished, no apparent distress Head: normocephalic, Atraumatic Eyes: normal inspection, EOMI Neck: supple, Trachea midline Respiratory/Chest: Decreased breath sounds, basal crackles Cardiovascular: S1, S2, No murmur Abdomen/GI:Soft, Non tender, Bowel sounds present Extremities/Musculoskeletal:normal inspection, no edema Neurologic/Psych:AAOX3, grossly no focal neurological deficits Skin: normal color, warm Results & Data Results & Data ([facility]) Vital Signs (Past 12 Hours) Vital Signs Temp Pulse Pulse Resp BP Pulse Ox 07/14/21 16:42 86 07/14/21 15:48 36.7 C 87 16 125/77 91 07/14/21 08:56 36.3 C L 80 16 138/80 90 07/14/21 07:08 73 Laboratory Results Short CBC 07/14/21 Range/Units 06:22 WBC 9.10 (4.8-10.8) K/uL Hgb 14.5 (14.0-18.0) g/dL Hct 41.4 L (42-52) % Plt Count 215 (130-400) K/uL BMP 07/14/21 06:22 Sodium 142 Potassium 3.8 Chloride 110 H Carbon Dioxide 25 BUN 29 H Creatinine 0.94 Glucose 204 H Calcium 8.6
[2021-07-14] MEDS: SODIUM CHLORIDE 0.9% 10ML FLUSH IV SCH (20:13)
[2021-07-14] MEDS: REMDESIVIR 100 MG in SODIUM CHLORIDE 0.9% 230 ML IV SCH (20:13)
[2021-07-14] MEDS: ACETAMINOPHEN 325 MG TAB PO PRN (20:14)
[2021-07-15] MEDS ORDERED: INSULIN ASPART 100 UNITS/ML 3 ML PEN SC SCH
[2021-07-15] MEDS ORDERED: BENZONATATE 100 MG CAPSULE PO PRN (02:13)
[2021-07-15 08:28] LABS: Hematocrit (blood only) 42.5 % (42-52); Hemoglobin 14.8 g/dL (14.0-18.0); Mean Corpuscular Hemoglobin 30.1 pg (25-34); Mean Corpuscular Hgb Conc 34.8 g/dL (32-36); Mean Corpuscular Volume 86.4 fL (80-100); Mean Platelet Volume 10.7 fL (7.4-10.4); Platelet Count 260 K/uL (130-400); RDW Coefficient of Variation 12.9 % (11.5-14.5); RDW Standard Deviation 41.5 fL (36.4-46.3); Red Blood Count 4.92 M/uL (4.7-6.1); White Blood Count 8.73 K/uL (4.8-10.8)
[2021-07-15] MEDS: ASPIRIN 81 MG ECTAB PO SCH (08:35)
[2021-07-15] MEDS: LOTEMAX~ORDER AWAITING ACTION SCH ×3 (08:35→23:33)
[2021-07-15] MEDS: ALPHAGAN~ORDER AWAITING ACTION SCH ×3 (08:35→23:33)
[2021-07-15] MEDS: ENOXAPARIN INJ 30 MG/0.3 ML SYR SQ SCH (08:36)
[2021-07-15] MEDS: DORZOLAMIDE HCL 2% OPH SOLN 10 ML BTL OPB SCH ×2 (08:36→20:21)
[2021-07-15] MEDS: dexAMETHasone 6 MG in SYRINGE 0 ML IV SCH (08:36)
[2021-07-15] MEDS: guaiFENesin 600 MG TABCR PO SCH ×2 (08:37→20:19)
[2021-07-15] MEDS: TIMOLOL MALEATE 0.25% OP SOLN 5 ML BTL OP SCH (08:39)
[2021-07-15 08:54] LABS: BUN Creatinine Ratio 33.3 (10-20); Calcium 8.2 mg/dl (8.5-10.1); Creatinine Clr Calc Pharmacy 85.1 ml/min; Est GFR (African American) 93.7 ml/min; Est GFR (Non-African American) 80.9 ml/min
[2021-07-15] MEDS: INSULIN ASPART 100 UNITS/ML 3 ML PEN SC SCH ×4 (09:10→20:41)
[2021-07-15] MEDS: INSULIN HUMAN NPH SC SCH (09:11)
[2021-07-15] MEDS: INSULIN GLARGINE SOLOSTAR 100 UNITS/ML 3 ML PEN SC SCH ×2 (09:11→20:42)
[2021-07-15] MEDS: ACETAMINOPHEN 325 MG TAB PO PRN ×2 (09:24→20:03)
[2021-07-15] MEDS ORDERED: POTASSIUM CHLORIDE CRTAB 20 MEQ TABCR PO STA (10:59)
[2021-07-15] MEDS: POTASSIUM CHLORIDE / WTR 10 MEQ/100 ML PLCT IV SCH ×2 (11:41→13:44)
[2021-07-15] MEDS: POLYETHYLENE (MIRALAX) 17 GM PACK PO PRN (12:07)
--- NOTE | 2021-07-15 19:19 | Hospitalist Progress Note ---
Date of Service July 15, 2021 Assessment & Plan (1) Acute hypoxemic respiratory failure: Plan: Multifocal COVID-19 pneumonia CXR:Right greater than left bilateral pulmonary opacities are suggestive of viral pneumonia. Continue Remdesivir, dexamethasone Continue supplemental oxygen as needed Lasix as needed On Lovenox SQ for DVT prophylaxis We will give a dose of Lasix today On L L supplemental oxygen Continue current management DM II HbA1c 10.4 Continue BGs Continue insulin therapy Glaucoma Continue home medication DVT Px: Lovenox SQ Code Status Full code Admission and Anticipated Discharge Date Admission Date: July 13, 2021 Subjective Patient is seen and examined at bedside States feeling better today No new complaints Minimal cough Saturating well on 4 L supplemental oxygen Denies nausea, vomiting, abdominal pain, diarrhea No significant shortness of breath Review of Systems Review of Systems: As per HPI, all 10 systems reviewed, all other ROS negative Physical Exam Physical Exam: Physical Exam: Vitals signs as noted above General Appearance:Moderately built and nourished, no apparent distress Head: normocephalic, Atraumatic Eyes: normal inspection, EOMI Neck: supple, Trachea midline Respiratory/Chest: Decreased breath sounds, basal crackles Cardiovascular: S1, S2, No murmur Abdomen/GI:Soft, Non tender, Bowel sounds present Extremities/Musculoskeletal:normal inspection, no edema Neurologic/Psych:AAOX3, grossly no focal neurological deficits Skin: normal color, warm Results & Data Results & Data ([facility]) Vital Signs (Past 12 Hours) Vital Signs Temp Pulse Pulse Resp BP Pulse Ox 07/15/21 16:34 83 07/15/21 16:09 36.5 C 82 20 121/78 95 07/15/21 09:25 36.6 C 77 16 120/75 93 07/15/21 07:18 71 Laboratory Results Short CBC 07/15/21 Range/Units 07:57 WBC 8.73 (4.8-10.8) K/uL Hgb 14.8 (14.0-18.0) g/dL Hct 42.5 (42-52) % Plt Count 260 (130-400) K/uL BMP 07/15/21 07:57 Sodium 143 Potassium 3.0 L D Chloride 110 H Carbon Dioxide 24 BUN 33 H Creatinine 1.00 Glucose 111 H Calcium 8.2 L
[2021-07-15] MEDS: REMDESIVIR 100 MG in SODIUM CHLORIDE 0.9% 230 ML IV SCH (19:51)
[2021-07-15] MEDS: SODIUM CHLORIDE 0.9% 10ML FLUSH IV SCH (19:53)
[2021-07-15] MEDS: DOCUSATE SODIUM 100 MG CAP PO SCH (20:18)
[2021-07-16] MEDS: INSULIN HUMAN NPH SC SCH (10:00)
[2021-07-16] MEDS: INSULIN GLARGINE SOLOSTAR 100 UNITS/ML 3 ML PEN SC SCH ×2 (10:00→21:59)
[2021-07-16] MEDS: INSULIN ASPART 100 UNITS/ML 3 ML PEN SC SCH ×4 (10:00→21:59)
[2021-07-16] MEDS: ACETAMINOPHEN 325 MG TAB PO PRN ×2 (10:05→20:52)
[2021-07-16 10:08] LABS: BUN Creatinine Ratio 32.3 (10-20); Calcium 8.2 mg/dl (8.5-10.1); Creatinine Clr Calc Pharmacy 103.8 ml/min; Est GFR (African American) 110.6 ml/min; Est GFR (Non-African American) 95.4 ml/min; Potassium 3.3 mmol/L (3.5-5.1)
[2021-07-16] MEDS: dexAMETHasone 6 MG in SYRINGE 0 ML IV SCH (10:08)
[2021-07-16] MEDS: DORZOLAMIDE HCL 2% OPH SOLN 10 ML BTL OPB SCH ×2 (10:08→20:30)
[2021-07-16] MEDS: TIMOLOL MALEATE 0.25% OP SOLN 5 ML BTL OP SCH (10:09)
[2021-07-16] MEDS: ASPIRIN 81 MG ECTAB PO SCH (10:11)
[2021-07-16] MEDS: LOTEMAX~ORDER AWAITING ACTION SCH ×3 (10:11→22:47)
[2021-07-16] MEDS: ALPHAGAN~ORDER AWAITING ACTION SCH ×3 (10:11→22:47)
[2021-07-16] MEDS ORDERED: POTASSIUM CHLORIDE CRTAB 20 MEQ TABCR PO STA (10:11)
[2021-07-16] MEDS: DOCUSATE SODIUM 100 MG CAP PO SCH ×2 (10:11→20:27)
[2021-07-16] MEDS: guaiFENesin 600 MG TABCR PO SCH ×2 (10:11→20:27)
[2021-07-16] MEDS: ENOXAPARIN INJ 30 MG/0.3 ML SYR SQ SCH (10:12)
[2021-07-16] MEDS ORDERED: POLYETHYLENE (MIRALAX) 17 GM PACK PO ONE (12:02)
--- NOTE | 2021-07-16 15:21 | Pharmacy Report ---
Pharmacy Glycemic Short Note 2 - Date of Service July 16, 2021 - Glycemic Short BSG Results (Last 24 hours): 07/15/21 07/15/21 07/16/21 16:05 20:06 08:32 Glucose POC Glucose 161 H 167 H 91 07/16/21 07/16/21 09:30 12:28 Glucose 142 H POC Glucose 110 H OUTPATIENT ANTIDIABETIC REGIMEN: * Januvia 100mg PO Daily * Glyburide 2.5mg PO BID ASSESSMENT: 07/16 * Patient received total of 101 units of insulin yesterday, of which 40 units were basal, 35 units were NPH to cover steroids * Fasting BSG 91 mg/dL - had decreased basal yesterday ~33% - may scale back slightly more tonight * BSGs controlled yesterday, continue same NPH * BSGs much improving today, will scale back on novolog CF/CR 07/14 * 61 year old male admitted for COVID-19 pneumonia, on IV Remdesivir and IV Dexamethasone, type 2 diabetic, uncontrolled, A1c 10.4% * Oral agents are not recommended for inpatient use d/t drug interactions, changing PO intake, and difficulty titrating for acute hyper/hypoglycemia. * Will hold oral agents for admission and continue to utilize SQ basal bolus insulin regimen + NPH insulin to cover steroid effects which is the recommended regimen for inpatient glycemic control. * Continue Lantus, tighten CF/CR, add NPH with IV Dexamethasone PLAN FOR INPATIENT GLYCEMIC CONTROL: * Hold outpatient oral diabetes medications * Basal insulin - decrease * Lantus 10-15 units BID * Steroid induced hyperglycemia * NPH 35 units SQ daily give with IV Dexamethasone * Bolus insulin * NovoLog per scale ACHS or Q6hrs while NPO * Goal Range: Low 110 mg/dL - High 140 mg/dL * Correction Factor: 20 mg/dL/unit * Nutritional / Prandial insulin per carb ratio of 1 unit per 7 grams CHO consumed PLAN FOR DISCHARGE: * to be determined, A1c 10.4%, needs insulin on discharge
--- NOTE | 2021-07-16 17:09 | Hospitalist Progress Note ---
Date of Service July 16, 2021 Assessment & Plan (1) Acute hypoxemic respiratory failure: Plan: Multifocal COVID-19 pneumonia CXR:Right greater than left bilateral pulmonary opacities are suggestive of viral pneumonia. Continue Remdesivir, dexamethasone Continue supplemental oxygen as needed Lasix as needed On Lovenox SQ for DVT prophylaxis We will give a dose of Lasix today On 5 L supplemental oxygen Will complete remdesivir course today Continue IV dexamethasone DM II HbA1c 10.4 Continue BGs Continue insulin therapy Glaucoma Continue home medication DVT Px: Lovenox SQ Code Status Full code Admission and Anticipated Discharge Date Admission Date: July 13, 2021 Subjective Patient is seen and examined at bedside No new complaints Subjectively continues to feel improved On 5 L supplemental oxygen No significant cough, dyspnea Denies nausea, vomiting, abdominal pain, diarrhea, chest pain Review of Systems Review of Systems: All systems reviewed & are unremarkable except as noted in Subjective Physical Exam Physical Exam: Physical Exam: Vitals signs as noted above General Appearance:Moderately built and nourished, no apparent distress Head: normocephalic, Atraumatic Eyes: normal inspection, EOMI Neck: supple, Trachea midline Respiratory/Chest: Decreased breath sounds, CTA Cardiovascular: S1, S2, No murmur Abdomen/GI:Soft, Non tender, Bowel sounds present Extremities/Musculoskeletal:normal inspection, no edema Neurologic/Psych:AAOX3, grossly no focal neurological deficits Skin: normal color, warm Results & Data Results & Data ([facility]) Vital Signs (Past 12 Hours) Vital Signs Temp Pulse Pulse Resp BP BP Pulse Ox 07/16/21 14:19 80 07/16/21 12:51 36.4 C L 69 20 121/72 94 07/16/21 08:55 36.3 C L 76 20 119/73 93 07/16/21 06:15 79 Laboratory Results [facility] 07/16/21 09:30 Sodium 141 Potassium 3.3 L Chloride 109 H Carbon Dioxide 25 BUN 27 H Creatinine 0.82 Glucose 142 H Calcium 8.2 L
[2021-07-16] MEDS: REMDESIVIR 100 MG in SODIUM CHLORIDE 0.9% 230 ML IV SCH (20:23)
[2021-07-16] MEDS: SODIUM CHLORIDE 0.9% 10ML FLUSH IV SCH (20:24)
[2021-07-17 00:41] LABS: Appearance Urine Clear (Clear); Bilirubin Urine Negative (Negative); Blood Urine Negative (Negative); Color Urine Yellow; Glucose Urine UA 2+ (Negative); Ketones Urine Negative (Negative); Leukocyte Esterase Urine Negative (Negative); Nitrite Urine Negative (Negative); Protein Urine Negative (Negative); Specific Gravity Urine 1.014 (1.000-1.030); Urobilinogen Urine Negative (Negative)
[2021-07-17] MEDS: ALPHAGAN~ORDER AWAITING ACTION SCH ×3 (08:09→23:30)
[2021-07-17] MEDS: LOTEMAX~ORDER AWAITING ACTION SCH ×3 (08:09→23:30)
[2021-07-17] MEDS: INSULIN ASPART 100 UNITS/ML 3 ML PEN SC SCH ×4 (08:15→21:29)
[2021-07-17] MEDS: INSULIN GLARGINE SOLOSTAR 100 UNITS/ML 3 ML PEN SC SCH ×2 (08:15→21:29)
[2021-07-17] MEDS: dexAMETHasone 6 MG in SYRINGE 0 ML IV SCH (08:23)
[2021-07-17] MEDS: TIMOLOL MALEATE 0.25% OP SOLN 5 ML BTL OP SCH (08:24)
[2021-07-17] MEDS: DORZOLAMIDE HCL 2% OPH SOLN 10 ML BTL OPB SCH ×2 (08:24→21:42)
[2021-07-17] MEDS: DOCUSATE SODIUM 100 MG CAP PO SCH ×2 (08:24→21:41)
[2021-07-17] MEDS: ASPIRIN 81 MG ECTAB PO SCH (08:24)
[2021-07-17] MEDS: guaiFENesin 600 MG TABCR PO SCH ×2 (08:26→21:42)
[2021-07-17] MEDS: ENOXAPARIN INJ 30 MG/0.3 ML SYR SQ SCH (08:26)
[2021-07-17 08:30] LABS: Hematocrit (blood only) 42.3 % (42-52); Hemoglobin 14.5 g/dL (14.0-18.0); Mean Corpuscular Hgb Conc 34.3 g/dL (32-36); Mean Corpuscular Volume 87.4 fL (80-100); Mean Platelet Volume 10.8 fL (7.4-10.4); Platelet Count 264 K/uL (130-400); RDW Coefficient of Variation 12.9 % (11.5-14.5); RDW Standard Deviation 41.5 fL (36.4-46.3); Red Blood Count 4.84 M/uL (4.7-6.1); White Blood Count 8.21 K/uL (4.8-10.8)
[2021-07-17 09:07] LABS: BUN Creatinine Ratio 22.9 (10-20); C Reactive Protein 0.9 mg/dl (0-0.29); Calcium 8.7 mg/dl (8.5-10.1); Creatinine Clr Calc Pharmacy 95.7 ml/min; Est GFR (Non-African American) 92.3 ml/min; Magnesium 2.1 mg/dl (1.8-2.4); Potassium 3.6 mmol/L (3.5-5.1)
[2021-07-17] MEDS: INSULIN HUMAN NPH SC SCH (09:28)
--- NOTE | 2021-07-17 09:52 | XRay Report ---
XR chest 1V portable CLINICAL HISTORY: COVID COMPARISON STUDY: Chest radiograph July 12, 2021. FINDINGS: Lung volumes are mildly diminished. This is unchanged. There is no pneumothorax or pleural effusion. There has been slight progression of bilateral airspace opacities since prior comparison. T here is no evidence for pulmonary edema. IMPRESSION: Bilateral airspace opacities consistent with viral pneumonia, slightly increased since p rior exam. ACT 112: Negative or not required by law. Electronically signed by: Sridhar Mcfarlane M.D. 07/17/2021 9:50 AM
[2021-07-17] MEDS ORDERED: bisacodyL 10 MG SUPP PR STA (10:03)
--- NOTE | 2021-07-17 10:38 | Hospitalist Progress Note ---
Date of Service July 17, 2021 Assessment & Plan (1) Acute hypoxemic respiratory failure: Plan: Multifocal COVID-19 pneumonia CXR:Right greater than left bilateral pulmonary opacities are suggestive of viral pneumonia. Completed remdesivir Continue dexamethasone Continue Lovenox SQ for DVT prophylaxis Incentive spirometry and flutter Educated on self proning DM II HbA1c 10.4 Continue insulin therapy Provided diabetes education. Patient will need Lantus on discharge Blood glucose controlled on insulin protocol Glaucoma Continue home medication DVT Px: Lovenox SQ Dulcolax pr for constipation Code Status Full code Admission and Anticipated Discharge Date Admission Date: July 13, 2021 Subjective 61-year-old man with history of DM type II, chronic back pain, glaucoma who presented with weakness, flulike symptoms, dry cough for about 10 days. Being managed for acute hypoxic respiratory failure, COVID-19 pneumonia. Patient seen and examined this morning. Reports weakness is improving. Still has dry cough. Denies any chest pain. Reports shortness of breath with exertion. Denies any dizziness, headache, nausea, vomiting, abdominal pain or diarrhea. Reports constipation and asking for suppository. Denies any dysuria, frequency, urgency or incontinence Denies any fevers, chills. Physical Exam Constitutional: + well hydrated; no acute distress Eyes: PERRL, conjunctivae normal, anicteric sclerae ENMT: external ear and nose normal, oropharynx normal Respiratory: Not in respiratory distress, on 4 L/min of nasal oxygen. Diminished breath sounds bilaterally. No crackles Cardiovascular: RRR, no murmur, no edema Gastrointestinal (Abdomen): normal bowel sounds, soft, nontender, no hepatosplenomegaly Musculoskeletal: no cyanosis or clubbing, extremities motor strength 5/5 Neurologic: PERRL, EOMI, accommodation nl, no face palsy, no dysarthria Psychiatric: A+Ox3, euthymic affect Results & Data Results & Data ([facility]) Vital Signs (Past 12 Hours) Vital Signs Temp Pulse Pulse Resp BP Pulse Ox Pulse Ox 07/17/21 08:07 36.7 C 78 19 125/74 92 07/17/21 07:16 60 07/17/21 03:34 36.7 C 68 16 136/76 96 07/17/21 00:02 36.9 C 69 18 118/71 95 95 Laboratory Results Abnormal lab results 07/16/21 07/16/2107/16/21 Range/Units 12:28 17:16 20:18 MPV (7.4-10.4) fL Chloride (98-107) mmol/L BUN (7-18) mg/dl BUN/Creatinine Ratio (10-20) Glucose (70-99) mg/dl POC Glucose 110 H 185 H 167 H (70-99) mg/dl C-Reactive Protein (0-0.29) mg/dl Urine Glucose (UA) (Negative) 07/16/21 07/17/21 07/17/21 Range/Units 21:45 07:49 08:08 MPV 10.8 H (7.4-10.4) fL Chloride (98-107) mmol/L BUN (7-18) mg/dl BUN/Creatinine Ratio (10-20) Glucose (70-99) mg/dl POC Glucose 132 H (70-99) mg/dl C-Reactive Protein (0-0.29) mg/dl Urine Glucose (UA) 2+ H (Negative) 07/17/21 Range/Units 08:08 MPV (7.4-10.4) fL Chloride 108 H (98-107) mmol/L BUN 20 H (7-18) mg/dl BUN/Creatinine Ratio 22.9 H (10-20) Glucose 135 H (70-99) mg/dl POC Glucose (70-99) mg/dl C-Reactive Protein 0.90 H (0-0.29) mg/dl Urine Glucose (UA) (Negative)
[2021-07-17] MEDS: ACETAMINOPHEN 325 MG TAB PO PRN (18:18)
[2021-07-18] MEDS: ACETAMINOPHEN 325 MG TAB PO PRN (06:37)
[2021-07-18 07:48] LABS: Hematocrit (blood only) 39.7 % (42-52); Hemoglobin 13.6 g/dL (14.0-18.0); Mean Corpuscular Hgb Conc 34.3 g/dL (32-36); Mean Corpuscular Volume 87.4 fL (80-100); Platelet Count 276 K/uL (130-400); Red Blood Count 4.54 M/uL (4.7-6.1)
[2021-07-18] MEDS: INSULIN ASPART 100 UNITS/ML 3 ML PEN SC SCH ×2 (08:15→12:18)
[2021-07-18] MEDS: INSULIN HUMAN NPH SC SCH (08:15)
[2021-07-18] MEDS: INSULIN GLARGINE SOLOSTAR 100 UNITS/ML 3 ML PEN SC SCH (08:15)
[2021-07-18 08:19] LABS: BUN Creatinine Ratio 25.7 (10-20); Calcium 8.7 mg/dl (8.5-10.1); Creatinine Clr Calc Pharmacy 96.8 ml/min; Est GFR (African American) 107.5 ml/min; Est GFR (Non-African American) 92.7 ml/min; Potassium 3.8 mmol/L (3.5-5.1)
[2021-07-18] MEDS: dexAMETHasone 6 MG in SYRINGE 0 ML IV SCH (08:23)
[2021-07-18] MEDS: DOCUSATE SODIUM 100 MG CAP PO SCH (08:23)
[2021-07-18] MEDS: guaiFENesin 600 MG TABCR PO SCH (08:23)
[2021-07-18] MEDS: ASPIRIN 81 MG ECTAB PO SCH (08:23)
[2021-07-18] MEDS: TIMOLOL MALEATE 0.25% OP SOLN 5 ML BTL OP SCH (08:24)
[2021-07-18] MEDS: POLYETHYLENE (MIRALAX) 17 GM PACK PO PRN (08:24)
[2021-07-18] MEDS: ALPHAGAN~ORDER AWAITING ACTION SCH ×2 (08:25→15:51)
[2021-07-18] MEDS: DORZOLAMIDE HCL 2% OPH SOLN 10 ML BTL OPB SCH (08:25)
[2021-07-18] MEDS: LOTEMAX~ORDER AWAITING ACTION SCH ×2 (08:25→15:51)
--- NOTE | 2021-07-18 10:15 | Discharge Summary ---
Date of Service July 18, 2021 Admission HPI Per Admitting Provider History obtained from patient and records. Medical history significant for hyperlipidemia, DM2 on oral medications, chronic back pain, glaucoma. Last confinement 2012 under Cardiology service for noncardiac chest pain. 10 days ago, patient noted generalized weakness, flulike symptoms, dry cough with malaise. No chest pain. Poor appetite. Patient sick with COVID-19. Patient has not received COVID-19 vaccination. Initial COVID-19 test from 10 days ago was negative. Patient noted worsening symptoms. Outpatient COVID-19 test from 2 days ago was positive. Patient consulted ER with [facility] because of worsening illness. Dry cough, shortness of breath without chest pain complaints. O2 sats 89 on room air at some point during ER stay. Patient given IV Decadron at the ER. BSG noted to be 300s. IV insulin administered at the ER. 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 Admission Exam Per Admitting Provider GENERAL: Comfortable, slightly anxious, no respiratory distress SKIN: Normal color, warm HEENT: Bespectacled, [place] palpebral conjunctivae, no ptosis, dry buccal mucosa, nasal cannula in place NECK : Supple, no tenderness CHEST : Decreased breath sounds, occasional expiratory wheezes, no tenderness HEART : RRR, no obvious murmurs ABDOMEN: no distention, nontender EXTREMITIES : No LE swelling/tenderness, no other conspicuous deformities noted NEUROLOGIC : Coherent, no facial asymmetry, no other gross focality Principal Diagnosis Acute hypoxic respiratory failure COVID-19 pneumonia Poorly controlled diabetes mellitus Discharge Exam Constitutional + well hydrated; no acute distress Eyes PERRL, conjunctivae normal, anicteric sclerae ENMT external ear and nose normal, oropharynx normal Respiratory NOt in respiratory distress Diminished breath sounds Cardiovascular RRR, no murmur, no edema Gastrointestinal (Abdomen) normal bowel sounds, soft, nontender, no hepatosplenomegaly Musculoskeletal no cyanosis or clubbing, extremities motor strength 5/5 Neurologic PERRL, EOMI, accommodation nl, no face palsy, no dysarthria Psychiatric A+Ox3, euthymic affect Discharge Data Allergies Allergy/AdvReac Type Severity Reaction Status Date / Time No Known Allergies Allergy Verified 07/12/21 22:45 Consultations 07/12/21 23:15 ED Decision to Admit Stat Diabetes Follow up Diabetes Follow-up Needed for HgbA1c >9% Hospital Course (1) Acute hypoxemic respiratory failure: Multifocal COVID-19 pneumonia CXR:Right greater than left bilateral pulmonary opacities are suggestive of viral pneumonia. Completed remdesivir Was treated with dexamethasone, incentive spirometry/flutter and self proning Patient required nasal oxygen Symptoms improved and he was weaned off oxygen 2 Step today does not indicate any oxygen requirement at rest and with activity DM II HbA1c 10.4 Provided diabetes education. Patient discharged on lantus 15U daily Advised to keep a daily blood glucose log to aid PCP make adjustment To continue home glyburide and Januvia Glaucoma Continue home medication Total Time Total Time Spent Total Time Spent (In Minutes): 45 Total Time Includes: Examination of the Patient, Discharge Planning and Medication Reconciliation Discharge Plan Discharge Items Patient Disposition: Home - Self-Care Reason For Visit: Cough Discharge Diagnosis: Acute hypoxic respiratory failure COVID-19 pneumonia Poorly controlled diabetes mellitus Activity: Resume your previous activity Non-emergency contact: Primary Care Provider Call non-emergency contact if: you have any medication questions and your symptoms worsen Follow-up/Referrals: Luigi Jean MD [Primary Care Provider] - Diet: Carb Consistent or DM2 and Heart Healthy Ha Attending Provider Instructions: Mr Fisher You came to the hospital complaining of cough and shortness of breath. You were evaluated and found to have COVID-19 pneumonia and was requiring oxygen. You were started on treatment and your symptoms improved. You were weaned off oxygen. Still found to have poorly controlled diabetes mellitus. Diabetes education was provided. You are being discharged on insulin long activing. Please continue to use this as instructed and monitor your blood glucose every day. Please keep a blood glucose log as we discussed and follow-up with your primary care doctor will continue to adjust medications and manage this. It is very important that your adherence with dietary instructions for management of diabetes as we discussed. 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 You should restrict activities outside your home, except for getting medical care. Do not go to work, school, or public areas. Avoid using public transportation, ride-sharing, or taxis. Separate yourself from other people and animals in your home People: As much as possible, you should stay in a specific room and away from other people in your home. Also, you should use a separate bathroom, if available. Animals: You should restrict contact with pets and other animals while you are sick with COVID-19, just like you would around other people. Although there have not been reports of pets or other animals becoming sick with COVID-19, it is still recommended that people sick with COVID-19 limit contact with animals until more information is known about the virus. When possible, have another member of your household care for your animals while you are sick. If you are sick with COVID-19, avoid contact with your pet, including petting, snuggling, being kissed or licked, and sharing food. If you must care for your pet or be around animals while you are sick, wash your hands before and after you interact with pets and wear a face mask. Call ahead before visiting your doctor If you have a medical appointment, call the healthcare provider and tell them that you have or may have COVID-19. This will help the healthcare providers office take steps to keep other people from getting infected or exposed. Wear a face mask You should wear a face mask when you are around other people (e.g., sharing a room or vehicle) or pets and before you enter a healthcare providers office. If you are not able to wear a face mask (for example, because it causes trouble breathing), then people who live with you should not stay in the same room with you, or they should wear a face mask if they enter your room. Cover your coughs and sneezes Cover your mouth and nose with a tissue when you cough or sneeze. Throw used tissues in a lined trash can. Immediately wash your hands with soap and water for at least 20 seconds or, if soap and water are not available, clean your hands with an alcohol-based hand oil analyst that contains at least 60% alcohol. Clean your hands often Wash your hands often with soap and water for at least 20 seconds, especially after blowing your nose, coughing, or sneezing; going to the bathroom; and before eating or preparing food. If soap and water are not readily available, use an alcohol-based hand oil analyst with at least 60% alcohol, covering all surfaces of your hands and rubbing them together until they feel dry. Soap and water are the best option if hands are visibly dirty. Avoid touching your eyes, nose, and mouth with unwashed hands. Avoid sharing personal household items You should not share dishes, drinking glasses, cups, eating utensils, towels, or bedding with other people or pets in your home. After using these items, they should be washed thoroughly with soap and water. Clean all high-touch surfaces everyday High touch surfaces include counters, tabletops, doorknobs, bathroom fixtures, toilets, phones, keyboards, tablets, and bedside tables. Also, clean any surfaces that may have blood, stool, or body fluids on them. Use a household cleaning spray or wipe, according to the label instructions. Labels contain instructions for safe and effective use of the cleaning product including precautions you should take when applying the product, such as wearing gloves and making sure you have good ventilation during use of the product. Monitor your symptoms Seek prompt medical attention if your illness is worsening (e.g., difficulty breathing).Beforeseeking care, call your healthcare provider and tell them that you have, or are being evaluated for, COVID-19. Put on a face mask before you enter the facility. These steps will help the healthcare providers office to keep other people in the office or waiting room from getting infected or exposed. Ask your healthcare provider to call the local or state health department. Persons who are placed under active monitoring or facilitated self- monitoring should follow instructions provided by their local health department or occupational health professionals, as appropriate. When working with your local health department check their available hours. If you have a medical emergency and need to call 911, notify the dispatch personnel that you have, or are being evaluated for COVID-19. If possible, put on a face mask before emergency medical services arrive. Discontinuing home isolation Patients with confirmed COVID-19 should remain under home isolation precautions until the risk of secondary transmission to others is thought to be low. The decision to discontinue home isolation precautions should be made on a [id number] basis, in consultation with healthcare providers and state and local health departments. Pending Studies at Discharge: No Stand-Alone Forms: My [facility], Smoking Cessation Medications and DC Order Prescriptions: New Zaida Huitron U-100 Insulin 100 unit/mL (3 mL) insulin pen 15 unit subcut QAM Qty: 3 RF: 0 (DME) pen needle, diabetic [BD Ultra-Fine Jennie Pen Needle] 32 gauge x 5/32" needle See Rx Instructions .Route Qty: 100 RF: 0 Continued glyburide 2.5 mg tablet 2.5 mg PO BID RF: 0 loteprednol etabonate [Lotemax] 0.5 % drops,suspension 1 drp ophthalmic (eye) QAM RF: 0 timolol maleate 0.5 % Drops 1 drp OPHTHALMIC (EYE) DAILY RF: 0 Alphagan P 0.1 % drops 1 drp ophthalmic (eye) BID RF: 0 Januvia 100 mg tablet 100 mg PO HS RF: 0 aspirin 81 mg Tablet,Delayed Release (Dr/Ec) 81 mg PO DAILY RF: 0 guaifenesin 100 mg/5 mL Liquid 200 mg PO DIRECTED PRN (Reason: Cough) RF: 0 dorzolamide 2 % drops 1 drp BID RF: 0 Discharge Orders: Discharge Order (Routine); Ordered 07/18/21 Ordered By: Kim Che Admission Data Admit Date/Time: 07/13/21 00:11 Attending Provider: Kim Che I. Admit Provider: Lit Ceron Primary Care Provider: Luigi Jean Other Providers: Lit Ceron ; Wisam Fowler Other Interventions: Discharge Summary Assessment (RN) Last Done: 07/18/21 10:44
[2021-07-18] MEDS: ENOXAPARIN INJ 30 MG/0.3 ML SYR SQ SCH (12:18)
[2021-07-18 16:49] VITALS: BP 109/70; PULSE 79; TEMP 97.9; O2SAT 96
== END 2021-07-18 17:48 | disposition home or self-care (01) | DRG 177 ==
LOC: ED 18:27 → EDINP 07-13 00:11 → SUATTDRO 07-13 00:11 → EDINP 07-13 16:04 → 2N 07-13 17:34
DX: Z79.899 Other long term (current) drug therapy; R43.8 Other disturbances of smell and taste; Z79.84 Long term (current) use of oral hypoglycemic drugs; H40.9 Unspecified glaucoma; J96.01 Acute respiratory failure with hypoxia; R11.0 Nausea; J12.82 Pneumonia due to coronavirus disease 2019; Z51.81 Encounter for therapeutic drug level monitoring; R19.7 Diarrhea, unspecified; E11.65 Type 2 diabetes mellitus with hyperglycemia; Z79.82 Long term (current) use of aspirin; Z83.511 Family history of glaucoma; U07.1 COVID-19; Z83.3 Family history of diabetes mellitus